=== PATIENT | female | born 1950 | race Caucasian/White ===

== ENCOUNTER → 2016-07-20 | Outpatient (CLI) | payer BC ==
--- NOTE | 2016-07-20 13:39 | MM ---
Reason for exam: screening (asymptomatic). Last mammogram was performed 1 year ago. History: Patient is postmenopausal. Took hormonal contraceptives for 1 year beginning at age 21. Took estrogen for 3 months beginning at age 50. Physical Findings: A clinical breast exam by your physician is recommended on an annual basis and results should be correlated with mammographic findings. MG Screening Mammo w CAD Bilateral CC and MLO view(s) were taken. Prior study comparison: July 15, 2015, bilateral MG screening mammo w CAD. November 06, 2012, bilateral digital screening mammo w/CAD. There are scattered fibroglandular densities. There is chronic nodularity bilaterally, stable. ASSESSMENT: Benign, BI-RAD 2 RECOMMENDATION: Routine screening mammogram of both breasts in 1 year.
== END | disposition home or self-care (01) ==
LOC: RADMAMWWP 10:52
PROVIDERS: ATTEND Family Medicine
DX: Z12.31 Encounter for screening mammogram for malignant neoplasm of breast (principal)

== ENCOUNTER → 2017-05-29 | Outpatient (CLI) | payer MEDICARE, BC ==
--- NOTE | 2017-05-29 09:38 | US ---
EXAMINATION TYPE: US duplex aorta DATE OF EXAM: 05/29/2017 COMPARISON: NONE CLINICAL HISTORY: Z13.9 Screening for Abdominal Aortic Aneurysm. Patient states having a family hx of AAA. HTN. Nonsmoker. EXAM MEASUREMENTS: Abdominal Aorta: Proximal: 2.2 x 2.5 cm Mid: 1.7 x 2.2 cm Distal: 1.7 x 1.9 cm Bifurcation: Right- 0.6 x 1.1 cm Left- 0.8 x 1.1 cm Atherosclerotic changes seen. No AAA visualized. IMPRESSION: Nonaneurysmal atheromatous change identified.
== END | disposition home or self-care (01) ==
LOC: RADUSWWP 09:00
PROVIDERS: ATTEND Family Medicine
DX: Z13.9 Encounter for screening, unspecified (principal); I70.0 Atherosclerosis of aorta
CPT/HCPCS: 93979

== ENCOUNTER → 2018-04-04 | Outpatient (CLI) | payer MEDICARE ==
--- NOTE | 2018-04-04 13:18 | BD ---
EXAMINATION TYPE: Axial Bone Density DATE OF EXAM: 04/04/2018 COMPARISON: 07.15.2015 DEXA bone scan CLINICAL HISTORY: 67 YR OLD FEMALE...ICD-10 CODE: Z78.0 MENOPAUSAL STATE Height: 61.4 Weight: 186 FRAX RISK QUESTIONS: History of Fracture in Adulthood: YES RISK FACTORS HISTORY OF: HX OF LT SHOULDER FX, RT WRIST....> 50 YRS OF AGE History of Wrist Fracture: RT OVER 50 YRS OLD Family History of Osteoporosis: UNSURE Active: YES Postmenopausal woman: YES AT AGE 51 YR OLD MEDICATIONS: Osteoporosis Medications: YES, BONIVA FOR ABOUT 3YRS Additional Medications: BP MEDS, EFFEXOR, TUMS, REFLUX MEDS, Additional History: FREQUENT FXS OVER 50 YRS OLD, HYPERTENSION, OSTEOPOROSIS EXAM MEASUREMENTS: Bone mineral densitometry was performed using the [employer] System. Bone mineral density as measured about the Lumbar spine is: ----- L1-L4(G/cm2): 1.258 T Score Values are as follows: ----- L1: -0.8 ----- L2: 0.8 ----- L3: 1.4 ----- L4: 1.0 ----- L1-L4: 0.6 Bone mineral density has: Increased 7.9% since study of: 07.15.2015 Bone mineral density about the R hip (g/cm2): 0.836 Bone mineral density about the L hip (g/cm2): 0.843 T Score values are as follows: -----R Neck: -2.2 -----L Neck: -2.1 -----R Total: -1.4 -----L Total: -1.3 Bone mineral density has: Decreased -1.3% since study of: 07.15.2015 FRAX%s: THERE IS A 18.5% CHANCE FOR A MAJOR OSTEOPOROTIC FX AND A 3.4% FOR HIP ....PROBABILITY OF FX IN 10 YRS TIME IMPRESSION: Osteopenia (T Score between -2.5 and -1) femoral neck level in both hips remains present. There remains slightly increased risk of fracture and the patient may be considered for treatment. Re-Screen 2-5 years. NOTE: T-SCORE=SD OF THE YOUNG ADULT MEAN.
--- NOTE | 2018-04-05 10:30 | MM ---
Reason for exam: screening (asymptomatic). Last mammogram was performed 1 year and 8 months ago. History: Patient is postmenopausal. Took hormonal contraceptives for 1 year beginning at age 21. Took estrogen for 3 months beginning at age 50. Physical Findings: A clinical breast exam by your physician is recommended on an annual basis and results should be correlated with mammographic findings. MG 3D Screening Mammo W/Cad Bilateral CC and MLO view(s) were taken. Prior study comparison: July 20, 2016, bilateral MG screening mammo w CAD. July 15, 2015, bilateral MG screening mammo w CAD. The breast tissue is heterogeneously dense. This may lower the sensitivity of mammography. There is chronic nodularity in the right breast, stable. No significant changes when compared with prior studies. ASSESSMENT: Benign, BI-RAD 2 RECOMMENDATION: Routine screening mammogram of both breasts in 1 year.
== END | disposition home or self-care (01) ==
LOC: RADMAMWWP 11:49
PROVIDERS: ATTEND Family Medicine
DX: Z12.31 Encounter for screening mammogram for malignant neoplasm of breast (principal); M85.852 Other specified disorders of bone density and structure, left thigh; M85.851 Other specified disorders of bone density and structure, right thigh; Z78.0 Asymptomatic menopausal state
CPT/HCPCS: 77063; 77067; 77080

== ENCOUNTER → 2019-07-21 | Outpatient (CLI) | payer MEDICARE ==
--- NOTE | 2019-07-21 13:35 | XR ---
Cervical spine HISTORY: Neck pain, M 54.2 5 views of the cervical spine There is retrolisthesis grade 1 C2-3. Multilevel facet arthropathy is present. Anterolisthesis grade 1 C4-5 and C7-T1, retrolisthesis grade 1 C5-6, C6-7. Loss of disc height is present at intervertebral levels especially C4-5, C5-6 and C6-7. There is multilevel spondylosis. Cervical vertebral bodies sh ow preserved height. Bone mineralization is mildly reduced. Oblique images show foraminal encroachmen t on the right at C3-4, C4-5 and C5-6, C6-7, on the left at C6-7, C5-6, upper levels not as well seen . Apical scarring vascular calcifications are present in the carotid artery distribution. IMPRESSION: Degenerative disc disease and facet arthropathy.
== END | disposition home or self-care (01) ==
LOC: RADXRMAIN 11:41
PROVIDERS: ATTEND Family Medicine
DX: M50.30 Other cervical disc degeneration, unspecified cervical region (principal); M46.92 Unspecified inflammatory spondylopathy, cervical region
CPT/HCPCS: 72050

== ENCOUNTER → 2020-05-26 | Outpatient (CLI) | payer MEDICARE ==
--- NOTE | 2020-05-27 09:46 | BD ---
EXAMINATION TYPE: Axial Bone Density DATE OF EXAM: 05/26/2020 COMPARISON: DEXA bone scan April 04, 2018 CLINICAL HISTORY: Postmenopausal female Height: 5 FT 2 IN Weight: 191 FRAX RISK QUESTIONS: Alcohol (3 or more units per day): NO Family History (Parent hip fracture): NO Glucocorticoids (More than 3mos): NO (Ex: prednisone, prednisolone, methylprednisolone, dexamethasone, and hydrocortisone). History of Fracture in Adulthood: YES Secondary Osteoporosis: 1. Type 1 Diabetes: NO 2. Hyperthyroidism: NO 3. Menopause before 45: NO 4. Malnutrition: NO 5. Chronic liver disease: NO Rheumatoid Arthritis: NO Current Tobacco Use: NO RISK FACTORS HISTORY OF: History of Wrist Fracture: RT WRIST When: 2012 Surgery to Spine/Hip(right/left)/Wrist (right/left): RT WRIST When: 2012 Family History of Osteoporosis: NO Active: YES Diet low in dairy products/other sources of calcium: NO Postmenopausal woman: AGE 50 Take estrogen and/or progesterone medications: NO Lost more than 2 inches in height since high school: NO MEDICATIONS: Osteoporosis Medications: YES Which medication: UNSURE NAME OF MED How Lon YEARS Additional Medications: BONIVA, BP MEDS, OMEPRAZOLE, Additional History: EXAM MEASUREMENTS: Bone mineral densitometry was performed using the [employer] System. Bone mineral density as measured about the Lumbar spine is: ----- L1-L4(G/cm2): 1.179 T Score Values are as follows: ----- L2: -0.3 ----- L3: 0.7 ----- L4: 0.1 ----- L1-L4: 0.0 Bone mineral density has: DECREASED -7.9 % since study of: 2018 Bone mineral density about the R hip (g/cm2): 0.666 Bone mineral density about the L hip (g/cm2): 0.745 T Score values are as follows: -----R Neck: -2.7 -----L Neck: -2.1 -----R Total: -1.4 -----L Total: -1.2 Bone mineral density has: INCREASED 1.1 % since study of: 2019 IMPRESSION: Osteoporosis (T Score less than -2.5) now present femoral neck level right hip. There is increased fracture risk and therapy is usually indicated based on age. Re-Screen 1-2 years. NOTE: T-SCORE=SD OF THE YOUNG ADULT MEAN.
--- NOTE | 2020-05-27 11:22 | MM ---
Reason for exam: screening (asymptomatic). Last mammogram was performed 2 years and 2 months ago. History: Patient is postmenopausal. Took hormonal contraceptives for 1 year beginning at age 21. Took estrogen for 3 months beginning at age 50. Physical Findings: A clinical breast exam by your physician is recommended on an annual basis and results should be correlated with mammographic findings. MG 3D Screening Mammo W/Cad Bilateral CC and MLO view(s) were taken. Prior study comparison: April 04, 2018, bilateral MG 3d screening mammo w/cad. July 20, 2016, bilateral MG screening mammo w CAD. There are scattered fibroglandular densities. There is no discrete abnormality. No significant changes when compared with prior studies. ASSESSMENT: Negative, BI-RAD 1 RECOMMENDATION: Routine screening mammogram of both breasts in 1 year.
== END | disposition home or self-care (01) ==
LOC: RADMAMWWP 14:51
PROVIDERS: ATTEND Family Medicine
DX: Z12.31 Encounter for screening mammogram for malignant neoplasm of breast (principal); Z78.0 Asymptomatic menopausal state; M81.8 Other osteoporosis without current pathological fracture
CPT/HCPCS: 77063; 77067; 77080

== ENCOUNTER → 2021-09-08 | Outpatient (CLI) | payer MEDICARE ==
--- NOTE | 2021-09-09 08:25 | MM ---
Reason for Exam: Screening (asymptomatic). Last mammogram was performed 1 year(s) and 4 month(s) ago. Patient History: Menarche at age 14. First Full-Term at age 19. Postmenopausal. Estrogen for 3 months from age 50 until age 50. Hormonal Contraceptives for 1 year from age 21 until age 22. Risk Values: Sulma 5 year model risk: 1.2%. NCI Lifetime model risk: 3.9%. Prior Study Comparison: 07/20/2016 Bilateral Screening Mammogram, [facility]. 04/04/2018 Bilateral Screening Mammogram, [facility]. 05/26/2020 Bilateral Screening Mammogram, [facility]. Tissue Density: There are scattered fibroglandular densities. Findings: Analyzed By CAD. There is no suspicious group of microcalcifications or new suspicious mass in either breast. Overall Assessment: Negative, BI-RAD 1 Management: Screening Mammogram of both breasts in 1 year. A clinical breast exam by your physician is recommended on an annual basis and results should be correlated with mammographic findings. Electronically signed and approved by: Orlin Samuels DO
== END | disposition home or self-care (01) ==
LOC: RADMAMWWP 11:38
PROVIDERS: ATTEND Family Medicine
DX: Z12.31 Encounter for screening mammogram for malignant neoplasm of breast (principal); Z78.0 Asymptomatic menopausal state
CPT/HCPCS: 77063; 77067

== ENCOUNTER → 2022-02-08 | Outpatient (CLI) | payer MEDICARE | END | disposition home or self-care (01) | LOC: LABWHC1 12:50 | PROVIDERS: ATTEND Orthopaedic Surgery | DX: M79.672 Pain in left foot (principal); M19.072 Primary osteoarthritis, left ankle and foot | CPT/HCPCS: 36415; 82306 ==

== ENCOUNTER → 2022-09-13 | Outpatient (CLI) | payer MEDICARE ==
--- NOTE | 2022-09-13 11:51 | BD ---
EXAMINATION TYPE: Axial Bone Density DATE OF EXAM: 09/13/2022 CLINICAL HISTORY: 71 years old Female. ICD-10 CODE: Z78.0 MENOPAUSAL STATE Height: 61.25 Weight: 188.4 FRAX RISK QUESTIONS: Alcohol (3 or more units per day): no Family History (Parent hip fracture): no Glucocorticoids (More than 3mos): no History of Fracture in Adulthood: Rt wrist, shoulder, foot Secondary Osteoporosis: 1. Type 1 Diabetes: no 2. Hyperthyroidism: no 3. Menopause before 45: no 4. Malnutrition: no 5. Chronic liver disease: no Rheumatoid Arthritis: no Current Tobacco Use: no RISK FACTORS HISTORY OF: Hip Fracture (Right/Left): no Spine Fracture: no When: age 61 History of Wrist Fracture: yes When: Rt wrist age 61 Surgery to Spine/Hip(right/left)/Wrist (right/left): RT Wrist When: Age 61 Family History of Osteoporosis: no Active: no Diet low in dairy products/other sources of calcium: yes Postmenopausal woman: yes Take estrogen and/or progesterone medications: no Lost more than 2 inches in height since high school: no Frequent falls: no Poor Health: no Hyperparathyroidism: no Adrenal Insufficiency: no MEDICATIONS: Prednisone or other steroids: no Thyroid Medications: no Osteoporosis Medications: Risedronate Sodium monthly How Long: Past 3 years Additional Medications: BP Meds x2, Vit d, Fish oil Additional History: EXAM MEASUREMENTS: Bone mineral densitometry was performed using the [employer] System. Bone mineral density as measured about the Lumbar spine is: ----- L1-L4(G/cm2): 1.287 T Score Values are as follows: ----- L1: -0.3 ----- L2: 0.3 ----- L3: 2.2 ----- L4: 1.1 ----- L1-L4: 0.9 Z Score Values are as follows: ----- L1: 0.7 ----- L2: 1.3 ----- L3: 3.2 ----- L4: 2.1 ----- L1-L4: 1.0 Bone mineral density has: increased 9.2 % since study of: 05/26/2020 Bone mineral density about the R hip (g/cm2): 0.853 Bone mineral density about the L hip (g/cm2): 0.877 T Score values are as follows: -----R Neck: -2.2 -----L Neck: -2.0 -----R Total: -1.2 -----L Total: -1.0 Z Score values are as follows: -----R Neck: -0.9 -----L Neck: -0.7 -----R Total: -0.2 -----L Total: 0.0 Bone mineral density has: increased 2.0 % since study of: FRAX%s: The graph provided illustrates a 18.8% chance for a major osteoporotic fx and a 3.9% chance f or the hips probability for fx in 10 years time. IMPRESSION: Osteopenia (T Score between -2.5 and -1). There is slightly increased risk of fracture and the patient may be considered for treatment. Re-Screen 2-5 years. NOTE: T-SCORE=SD OF THE YOUNG ADULT MEAN.
--- NOTE | 2022-09-14 07:58 | MM ---
Reason for Exam: Screening (asymptomatic). Last screening mammogram was performed 12 month(s) ago. Patient History: Menarche at age 14. First Full-Term at age 19. Postmenopausal. Estrogen for 3 months from age 50 until age 50. Hormonal Contraceptives for 1 year from age 21 until age 22. Risk Values: Sulma 5 year model risk: 1.2%. NCI Lifetime model risk: 3.7%. Prior Study Comparison: 04/04/2018 Bilateral Screening Mammogram, [facility]. 05/26/2020 Bilateral Screening Mammogram, [facility]. 09/08/2021 Bilateral MG 3D screening mammo w/cad, [facility]. Tissue Density: There are scattered fibroglandular densities. Findings: Analyzed By CAD. There is no suspicious group of microcalcifications or new suspicious mass in either breast. Stable chronic nodularity within both breasts. Overall Assessment: Benign, BI-RAD 2 Management: Screening Mammogram of both breasts in 1 year. A clinical breast exam by your physician is recommended on an annual basis and results should be correlated with mammographic findings. Note on Sulma scores and lifetime risk: 1. A Sulma score greater than 3% is considered moderate risk. If this is the case, consider specialist referral to assess eligibility for a risk reducing agent. If overall lifetime risk for the development of breast cancer is 20% or higher, the patient may qualify for future screening with alternating mammogram and breast MRI. Electronically signed and approved by: Sadiq Tillman D.O.
== END | disposition home or self-care (01) ==
LOC: RADMAMWWP 10:54
PROVIDERS: ATTEND Family Medicine
DX: Z12.31 Encounter for screening mammogram for malignant neoplasm of breast (principal); M85.89 Other specified disorders of bone density and structure, multiple sites; Z78.0 Asymptomatic menopausal state
CPT/HCPCS: 77063; 77067; 77080

== ENCOUNTER → 2024-06-04 | Outpatient (CLI) | payer MEDICARE ==
--- NOTE | 2024-06-04 12:18 | US ---
EXAMINATION TYPE: US thyroid st tissue head/neck DATE OF EXAM: 06/04/2024 COMPARISON: NONE CLINICAL INDICATION: Female, 73 years old with history of E04.0 NONTOXIC DIFFUSE GOITER; Elevated par athyroid hormone, normal calcium TECHNIQUE: Grayscale and color Doppler imaging of the thyroid gland. FINDINGS: GLAND SIZE: Right Lobe: 4.7 x 1.5 x 1.6 cm Overall Parenchyma: homogeneous Left Lobe: 4.8 x 1.6 x 1.6 cm Overall Parenchyma: homogeneous Isthmus Thickness: 0.38 cm NODULES RIGHT: # of nodules measured on right: 0 LEFT: # of nodules measured on left: 0 2016 ACR TI-RADS LEVEL: ISTHMUS: # of nodules measured in the isthmus: 0 2016 ACR TI-RADS LEVEL: Bilateral neck scanned, no evidence of lymphadenopathy. Hyperechoic area noted inferior to right thyroid measuring 0.7 x 0.5 x 0.7cm. IMPRESSION: No discrete intrathyroid lesion seen. Hyperechoic extra thyroid lesion is nonspecific and could refle ct parathyroid or lymph node. Highest TI-RADS level nodule reported: 2017 ACR TI-RADS LEVEL: TI-RADS assessment score and recommendation for follow-up based on appropriate scoring and treatment protocols. TR3: If nodule size is ? 2.5 cm, FNA is recommended. If nodule size is ? 1.5 cm, follow-up imaging at 1, 3, and 5 years is recommended. TR4: If nodule size is ? 1.5 cm, FNA is recommended. If nodule size is ? 1.0 cm, follow-up imaging at 1, 2, 3, and 5 years is recommended. TR5: If nodule size is ? 1.0 cm, FNA is recommended. If nodule size is ? 0.5 cm, annual follow-up for up to 5 years is recommended. [email or web address], , 06/04/2024 12:16 PM
== END | disposition home or self-care (01) ==
LOC: RADUSWWP 10:52
PROVIDERS: ATTEND Family Medicine
DX: E04.1 Nontoxic single thyroid nodule (principal); E07.89 Other specified disorders of thyroid
CPT/HCPCS: 76536

== ENCOUNTER → 2024-08-27 | Outpatient (CLI) | payer MEDICARE ==
[2024-08-27 19:55] LABS: ALT 29 U/L (8-44); AST 30 U/L (13-35); Albumin 4.4 g/dL (3.8-4.9); Albumin/Globulin Ratio 1.91 Ratio (1.60-3.17); Alkaline Phosphatase 58 U/L (41-126); Anion Gap 13.80 mmol/L (4.00-12.00); BUN/Creat Ratio 22.62 Ratio (12.00-20.00); Blood Urea Nitrogen 29.4 mg/dL (9.0-27.0); Calcium 9.8 mg/dL (8.7-10.3); Carbon Dioxide 22.2 mmol/L (21.6-31.8); Chloride 106 mmol/L (96-109); Cholesterol 150.00 mg/dL (0.00-200.00); Globulin 2.3 g/dL (1.6-3.3); Glucose 110 mg/dL (70-110); HDL Cholesterol 52.50 mg/dL (40.00-60.00); LDL Cholesterol,Calculated 80.7 mg/dL (0.0-131.0); Potassium 4.6 mmol/L (3.5-5.5); Sodium 142 mmol/L (135-145); Total Protein 6.7 g/dL (6.2-8.2); Triglycerides 83.90 mg/dL (0.00-149.00); VLDL Calculation 16.78 mg/dL (5.00-40.00)
[2024-08-27 19:57] LABS: Basophils # (A) 0.05 X 10*3/uL (0.00-0.10); Basophils % (A) 0.6 %; Eosinophils # (A) 0.10 X 10*3/uL (0.04-0.35); Eosinophils % (A) 1.3 %; HCT 44.2 % (37.2-46.3); HGB 14.4 g/dL (12.0-15.0); Immature Grans, Automated 0.30 %; Lymphocytes # (A) 2.75 X 10*3/uL (0.90-5.00); Lymphocytes % (A) 35.4 %; MCH 30.3 pg (27.0-32.0); MCHC 32.6 g/dL (32.0-37.0); MCV 92.9 FL (80.0-97.0); Monocytes # (A) 0.45 X 10*3/uL (0.20-1.00); Monocytes % (A) 5.8 %; NRBC Per 100 WBC 0 X 10*3/uL (0.00-0.01); Neutrophils # (A) 4.39 X 10*3/uL (1.80-7.70); Neutrophils % (A) 56.6 %; Platelet Count 257 X 10*3/uL (140-440); RBC 4.76 X 10*6/uL (4.10-5.20); RDW 13.5 % (11.5-14.5); WBC 7.76 X 10*3/uL (4.50-10.00)
== END | disposition home or self-care (01) ==
LOC: LABWHC1 14:20
PROVIDERS: ATTEND Family Medicine
DX: E21.3 Hyperparathyroidism, unspecified (principal); E78.5 Hyperlipidemia, unspecified
CPT/HCPCS: 36415; 80053; 80061; 82306; 83970; 84100; 84443; 85025